=== PATIENT | male | born 1955 | race Caucasian/White ===

== ENCOUNTER 2016-12-22 00:21 | Emergency (ER) | payer OTHER ==
[2016-12-22] MEDS ORDERED: IPRATROPIUM/ALBUTEROL 3 ML DEYVIAL ONE (01:56)
[2016-12-22] MEDS ORDERED: IPRATROPIUM/ALBUTEROL 3 ML DEYVIAL IH ONE (02:01)
[2016-12-22] MEDS ORDERED: AZITHROMYCIN 250 MG TAB PO ONE ×2 (02:47→02:55)
[2016-12-22] MEDS ORDERED: ALBUTEROL INH PREPACK MDI TAKEHOME ONE (02:47)
--- NOTE | 2016-12-22 02:48 | EDPHY ---
HPI/HX/ROS/PE/MDM Narrative: Chief complaint: Cough HPI: 61-year-old male presenting with 5 days of cough productive of copious green yellowish sputum. He has had some chills. No chest pain or shortness of breath. He is not a smoker. States his chest does feel a little bit tight like he is wheezing. Does not have a history of asthma. Did not get his flu shot this year. Otherwise been in his normal state of health ROS: 10 point Review of Systems is negative except as noted in the HPI. Physical exam: Gen: Awake, Alert, No Distress HEENT: Nose: no rhinorrhea Eyes: PERRLA, EOMI Mouth: Moist mucosa Neck: Supple, no JVD Chest: nontender, diffuse expiratory wheezing without focal rales or rhonchi Heart: S1, S2 normal, no murmur Abd: Soft, non-tender, no guarding Back: no CVA tenderness, no midline tenderness Ext: no edema, non-tender Skin: no rash Neuro: CN II-XII intact, Sensation grossly intact, Strength 5/5 in bilateral upper and lower extremities ED Course: Chest x-ray: Consistent with bronchitis but there is no focal infiltrate. 61-year-old male with bronchitis symptoms with productive cough with greenish sputum and diffuse wheezing. He is improved after a DuoNeb. Does not have a history of asthma. Is not a smoker. Will start him on an antibiotic and give him an inhaler. He will follow up with primary care doctor in 2-3 days for re- evaluation. - Data Points Medications Given: Discontinued Medications Albuterol/Ipratropium (Duoneb) 3 ml EDNOW ONE Stop: 12/22/16 02:02 Last Admin: 12/22/16 02:01 Dose: 3 ml General Time Seen by Provider: 12/22/16 01:51 Initial Vital Signs: Initial Vital Signs Temperature (C) 36.4 C 12/22/16 00:25 Heart Rate 70 12/22/16 00:25 Respiratory Rate 16 12/22/16 00:25 Blood Pressure 137/87 H 12/22/16 00:25 O2 Sat (%) 92 12/22/16 00:25 O2 Delivery Mode Room Air Allergies/Adverse Reactions: No Known Allergies Allergy (Unverified 06/17/13 14:11) Home Medications: Medication Instructions Recorded Levothyroxine [Synthroid 25 mcg 25 mcg PO DAILY06 04/16/15 (*)] AZITHROMYCIN [Z-PACK] 250 mg PO DAILY #6 tab 12/22/16 Departure - Departure Disposition: Home, Routine, Self-Care Clinical Impression: Acute bronchitis Condition: Good Instructions: Acute Bronchitis (ED) Additional Instructions: May use inhaler 2 puffs every 4 hours as needed for wheezing. Always use your inhaler with a spacer. Please take your full course of antibiotics. Follow up with primary care physician in 2-3 days for re-evaluation. Referrals: Vishal Caraballo MD [Primary Care Provider] - As per Instructions Prescriptions: AZITHROMYCIN [Z-PACK] 250 mg PO DAILY #6 tab
[2016-12-22 03:01] VITALS: BP 136/91; PULSE 91; RESP 18; TEMP 98.2; O2SAT 98
--- NOTE | 2016-12-22 08:18 | DX ---
Chest, PA and Lateral History: Cough and wheezing Findings: There is chronic or recurrent mild bronchial wall thickening. Lung volumes are again modera tely prominent. There is no focal consolidation, infiltrate or effusion. Heart size is relatively sma ll. There is no evidence for pneumothorax or pneumomediastinum. Orthopedic hardware overlies the low cervical spine. A left nipple shadow is again present. Impression: Airways disease.
== END 2016-12-22 03:00 | disposition home or self-care (01) ==
DX: J20.9 Acute bronchitis, unspecified (principal)

== ENCOUNTER → 2017-06-30 | Outpatient (CLI) | payer OTHER | LOC: FIMAGING 09:16 | PROVIDERS: ATTEND Orthopaedic Surgery Orthopaedic Surgery of the Spine | DX: M54.2 Cervicalgia (principal); M96.1 Postlaminectomy syndrome, not elsewhere classified; M43.12 Spondylolisthesis, cervical region; Z98.1 Arthrodesis status ==

== ENCOUNTER → 2017-07-20 | Outpatient (CLI) | payer OTHER | LOC: FIMAGING 10:49 | PROVIDERS: ATTEND Physical Medicine & Rehabilitation Neuromuscular Medicine | DX: Z09 Encounter for follow-up examination after completed treatment for conditions other than malignant neoplasm (principal); Z98.1 Arthrodesis status ==

== ENCOUNTER → 2017-08-15 | Outpatient (CLI) | payer OTHER | LOC: BMCIMAGING 14:11 | PROVIDERS: ATTEND Emergency Medicine | DX: J40 Bronchitis, not specified as acute or chronic (principal) ==